=== PATIENT | male | born 1960 | race Caucasian/White ===

== ENCOUNTER 2024-01-31 08:58 | Observation (INO) ==
[2024-01-29 11:51] LABS: Basophils # (Auto) 0.03 K/mcL (0.00-0.30); Basophils % (Auto) 0.4 % (0.0-2.0); Eosinophils % (Auto) 1.3 % (0.0-7.0); Hematocrit 45.4 % (40.1-51.0); Hemoglobin 15.1 g/dL (13.7-17.5); Lymphocytes # (Auto) 2.36 K/mcL (1.50-4.80); Lymphocytes % (Auto) 29.6 % (15.5-49.0); Mean Cell Volume 99.1 fL (80.0-100.0); Mean Corpuscular HGB Conc 33.3 g/dL (31.0-36.0); Mean Platelet Volume 10.5 fL (8.8-12.5); Monocytes # (Auto) 0.57 K/mcL (0.10-0.90); Monocytes % (Auto) 7.1 % (1.0-12.0); Neutrophils % (Auto) 61.3 % (38.0-78.0); Platelet Count 224 K/mcL (140-440); RBC 4.58 M/mcL (4.63-6.08); Red Cell Distribution Width 12.3 % (11.5-14.5)
[2024-01-29 12:46] LABS: Blood Urea Nitrogen 18 mg/dL (8-23); Carbon Dioxide 24 mmol/L (22-30); Chloride 103 mmol/L (96-108); Glomerular Filtration Rate 93; Glucose 96 mg/dL (70-105); Potassium 4.1 mmol/L (3.3-5.1); Sodium 137 mmol/L (133-145)
[2024-01-31] MEDS ORDERED: GLYCOPYRROLATE 0.2 MG/ML VIAL IV ONE (11:20)
[2024-01-31] MEDS ORDERED: ONDANSETRON 4 MG/2 ML VIAL ONE ×2 (11:20→16:45)
[2024-01-31] MEDS ORDERED: LIDOCAINE 2% PF 5 ML VIAL ONE (11:20)
[2024-01-31] MEDS ORDERED: KETAMINE 50 MG/ML Syringe IV ONE ×2 (11:20→16:46)
[2024-01-31] MEDS ORDERED: DEXAMETHASONE 10 MG/ML VIAL ONE ×2 (11:20→16:45)
[2024-01-31] MEDS ORDERED: PROPOFOL 200 MG/20 ML VIAL IV ONE (11:20)
[2024-01-31] MEDS ORDERED: ePHEDrine 50 MG/ML AMPUL IV ONE (11:20)
[2024-01-31] MEDS ORDERED: MIDAZOLAM 2 MG/2 ML VIAL ONE (11:20)
[2024-01-31] MEDS ORDERED: PHENYLephrine 1 MG/10 ML SYRINGE (ANEST) ONE (11:20)
[2024-01-31] MEDS ORDERED: METOCLOPRAMIDE 10 MG/2 ML VIAL ONE (11:21)
[2024-01-31] MEDS ORDERED: ePHEDrine 50 MG/5 ML SYRINGE (ANEST) IV ONE (11:21)
[2024-01-31] MEDS ORDERED: FAMOTIDINE/PF 20 MG/2 ML VIAL IV ONE (11:21)
[2024-01-31] MEDS ORDERED: ROCURONIUM 10 MG/ML ML IV ONE ×5 (11:21→16:43)
[2024-01-31] MEDS: ceFAZolin 2 GM in DEXTROSE 5% IN WATER 50 ML IV SCH (12:26)
[2024-01-31] MEDS ORDERED: fentaNYL 100 MCG/2 ML VIAL ONE ×3 (12:39→16:32)
[2024-01-31] MEDS ORDERED: BUPIVACAINE PF 0.5% 10 ML VIAL ONE (12:40)
[2024-01-31] MEDS ORDERED: FLUMAZENIL 0.1 MG/ML ML IV PRN (16:37)
[2024-01-31] MEDS ORDERED: DROPERIDOL 5 MG/2 ML VIAL IV PRN (16:37)
[2024-01-31] MEDS ORDERED: IPRATROPIUM/ALBUTEROL 3 ML AMPUL.NEB NEB PRN (16:37)
[2024-01-31] MEDS ORDERED: fentaNYL 100 MCG/2 ML VIAL IV PRN (16:37)
[2024-01-31] MEDS ORDERED: HYDROmorphone 0.5 MG/0.5 ML SYRINGE IV PRN (16:37)
[2024-01-31] MEDS ORDERED: ONDANSETRON 4 MG/2 ML VIAL IV PRN ×2 (16:37→18:09)
[2024-01-31] MEDS ORDERED: NALOXONE HCL 0.4 MG/ML VIAL IV PRN (16:37)
[2024-01-31] MEDS ORDERED: BENZOCAINE/MENTHOL 1 LOZENGE PO PRN (16:37)
[2024-01-31] MEDS ORDERED: METHOCARBAMOL 1,000 MG/10 ML VIAL IV PRN (16:37)
[2024-01-31] MEDS ORDERED: LACTATED RINGERS 250 ML IV PRN (16:37)
[2024-01-31] MEDS ORDERED: KETOROLAC 15 MG/ML VIAL IV PRN (16:37)
[2024-01-31] MEDS ORDERED: KETOROLAC 30 MG/ML VIAL ONE (16:45)
[2024-01-31] MEDS ORDERED: HYDROmorphone 0.5 MG/0.5 ML SYRINGE ONE (16:48)
[2024-01-31] MEDS ORDERED: SUGAMMADEX SODIUM 200 MG/2 ML VIAL IV ONE (16:49)
[2024-01-31] MEDS: BUPIVACAINE 0.25% 50 ML VIAL IJ ONE (17:56)
[2024-01-31] MEDS ORDERED: morphine 4 MG/ML VIAL IV PRN (18:09)
[2024-01-31] MEDS: ACETAMINOPHEN 1,000 MG/100 ML BAG IV ONE (18:23)
[2024-01-31] MEDS ORDERED: ZOLMITRIPTAN 5 MG PO PRN (20:00)
[2024-01-31] MEDS: LACTATED RINGERS 1,000 ML IV SCH (20:18)
[2024-01-31] MEDS: 0.9 % SODIUM CHLORIDE 10 ML SYRINGE IV SCH (21:15)
[2024-01-31] MEDS: LIDOCAINE 4% TOP PATCH TOPICAL SCH (21:15)
[2024-01-31] MEDS: TOPIRAMATE 100 MG TABLET PO SCH (21:15)
[2024-01-31] MEDS: DOCUSATE SODIUM 100 MG CAPSULE PO SCH (21:15)
[2024-01-31] MEDS: KETOROLAC 15 MG/ML VIAL IV PRN (21:18)
[2024-01-31] MEDS: DEXTROSE 5%-NS 1,000 ML IV SCH (22:11)
[2024-01-31] MEDS: 0.9 % SODIUM CHLORIDE 250 ML IV SCH (22:32)
[2024-02-01] MEDS: oxyCODONE/APAP 5/325MG TABLET PO PRN (01:02)
[2024-02-01 06:18] LABS: Hematocrit 38.2 % (40.1-51.0); Hemoglobin 12.6 g/dL (13.7-17.5); Mean Cell Volume 101.1 fL (80.0-100.0); Mean Platelet Volume 10.2 fL (8.8-12.5); Platelet Count 215 K/mcL (140-440); RBC 3.78 M/mcL (4.63-6.08); Red Cell Distribution Width 12.3 % (11.5-14.5)
[2024-02-01 06:39] LABS: Blood Urea Nitrogen 19 mg/dL (8-23); Calcium 7.9 mg/dL (8.6-10.4); Carbon Dioxide 20 mmol/L (22-30); Chloride 106 mmol/L (96-108); Glomerular Filtration Rate 93; Glucose 130 mg/dL (70-105); Potassium 4.3 mmol/L (3.3-5.1); Sodium 138 mmol/L (133-145)
[2024-02-01] MEDS: DULoxetine 30 MG CAPSULE PO SCH (08:44)
[2024-02-01] MEDS: metroNIDAZOLE 500 MG/100 ML BAG IV SCH (08:45)
[2024-02-01] MEDS: LEVOFLOXACIN 500 MG/100 ML BAG IV SCH (11:54)
[2024-02-02 06:51] LABS: Hematocrit 35.5 % (40.1-51.0); Hemoglobin 11.6 g/dL (13.7-17.5); Mean Cell Volume 102.6 fL (80.0-100.0); Mean Corpuscular HGB Conc 32.7 g/dL (31.0-36.0); Mean Platelet Volume 10.3 fL (8.8-12.5); Platelet Count 165 K/mcL (140-440); RBC 3.46 M/mcL (4.63-6.08); Red Cell Distribution Width 12.4 % (11.5-14.5); WBC 8.8 K/mcL (4.5-11.0)
[2024-02-02 07:00] LABS: Blood Urea Nitrogen 14 mg/dL (8-23); Carbon Dioxide 22 mmol/L (22-30); Chloride 111 mmol/L (96-108); Glomerular Filtration Rate 99; Glucose 98 mg/dL (70-105); Potassium 4.1 mmol/L (3.3-5.1); Sodium 140 mmol/L (133-145)
[2024-02-02] MEDS ORDERED: metroNIDAZOLE 500 MG/100 ML BAG IV SCH (14:00)
== END 2024-02-02 10:58 | disposition home or self-care (01) ==
LOC: SUR 08:58 → MEDSUR 08:58
PROVIDERS: ADMIT Urology; ATTEND Urology